=== PATIENT | female | born 1990 | race Caucasian/White ===

== ENCOUNTER 2018-10-09 09:46 | Emergency (ER) | payer BC ==
--- NOTE | 2018-10-09 10:10 | EDM.PDOC ---
ED HPI GENERAL MEDICAL PROBLEM - General Chief Complaint: Laceration Stated Complaint: CUT HAND WITH SCISSORS Time Seen by Provider: 10/09/18 10:07 Source of Information: Reports: Patient History Limitations: Reports: No Limitations - History of Present Illness INITIAL COMMENTS - FREE TEXT/NARRATIVE: HISTORY AND PHYSICAL: History of present illness: Patient is a 28 troponin presents to the ED today with concern of the left palm laceration from a scissor. Patient denies little blood loss and states she has full range of motion, strength, and sensation of the hand without any deficit. Patient states she is up-to-date on her vaccinations. Patient denies fever, chills, chest pain, shortness of breath, or cough. Denies headache, neck stiff ness, change in vision, syncope, or near syncope. Denies nausea, vomiting, abdominal pain, diarrhea, constipation, or dysuria. Has not noted any blood in urine or stool. Patient has been eating and drinking appropriately. Review of systems: As per history of present illness and below otherwise all systems reviewed and negative. Past medical history: As per history of present illness and as reviewed below otherwise noncontributory. Surgical history: As per history of present illness and as reviewed below otherwise noncontributory. Social history: See social history for further information Family history: As per history of present illness and as reviewed below otherwise noncontributory. Physical exam: General: Patient is alert, oriented, and in no acute distress. Patient sitting comfortably on exam table. HEENT: Atraumatic, normocephalic, pupils equal and reactive bilaterally, negative for conjunctival pallor or scleral icterus, mucous membranes moist, TMs normal bilaterally, throat clear, neck supple, nontender, trachea midline. No drooling or trismus noted. No meningeal signs. No hot potato voice noted. Lungs: Clear to auscultation, breath sounds equal bilaterally, chest nontender. Heart: S1S2, regular rate and rhythm without overt murmur Abdomen: Soft, nondistended, nontender. Negative for masses or hepatosplenomegaly. Negative for costovertebral tenderness. Pelvis: Stable nontender. Genitourinary: Deferred. Rectal: Deferred. Skin: Intact, warm, dry. No lesions or rashes noted. Extremities: Negative for cords or calf pain. Neurovascular unremarkable. There is a 3mm superficial abrasion/laceration on the medial left palm of the hand. There is a very small amount of blood loss. Radial pulses grossly intact with capillary refill less than 2 seconds hand. Patient has full range of motion/ strength of all joints of the upper extremities. Neuro: Awake, alert, oriented. Cranial nerves II through XII unremarkable. Cerebellum unremarkable. Motor and sensory unremarkable throughout. Exam nonfocal. Notes: Discussed the importance for follow-up with a primary care provider. Voices understanding and is agreeable to plan of care. Denies any further questions or concerns at this time. Diagnostics: Hand x-ray Therapeutics: Dermabond Prescription: None Impression: Hand laceration Plan: 1. Keep the area clean and dry. Continue to monitor for signs of infection as discussed. 2. Tylenol and/or ibuprofen as directed and as needed for pain management and discomfort. 3. Please follow-up with your primary care provider as discussed. Return to the ED as needed and as discussed. Definitive disposition and diagnosis as appropriate pending reevaluation and review of above. LEFT HAND Pain Score (Numeric/FACES): 7 - Related Data Allergies Allergy/AdvReac Type Severity Reaction Status Date / Time aspirin Allergy Hives Verified 10/09/18 09:55 Home Meds: Home Meds PARoxetine [Paxil] 10 mg PO DAILY 10/09/18 [History] Past Medical History HEENT History: Reports: None Cardiovascular History: Reports: None Respiratory History: Reports: None Gastrointestinal History: Reports: None Genitourinary History: Reports: None KEY MAKER History: Reports: None Musculoskeletal History: Reports: None Neurological History: Reports: None Psychiatric History: Reports: Anxiety, Depression Endocrine/Metabolic History: Reports: None Hematologic History: Reports: None Immunologic History: Reports: None Oncologic (Cancer) History: Reports: None Dermatologic History: Reports: None - Past Surgical History Head Surgeries/Procedures: Reports: None HEENT Surgical History: Reports: None Cardiovascular Surgical History: Reports: None Respiratory Surgical History: Reports: None GI Surgical History: Reports: None Female Surgical History: Reports: None Endocrine Surgical History: Reports: None Neurological Surgical History: Reports: None Musculoskeletal Surgical History: Reports: None Oncologic Surgical History: Reports: None Dermatological Surgical History: Reports: None Social & Family History - Family History Family Medical History: Noncontributory - Tobacco Use Smoking Status *Q: Never Smoker Second Hand Smoke Exposure: No - Caffeine Use Caffeine Use: Reports: Coffee - Recreational Drug Use Recreational Drug Use: No ED ROS GENERAL - Review of Systems Review Of Systems: ROS reveals no pertinent complaints other than HPI. ED EXAM, SKIN/RASH Exam: See Below (See dictation) ED SKIN PROCEDURES - Laceration/Wound Repair Left Medial Hand Lac/Wound length In cm: 0.3 Appearance: Superficial, Linear, Clean Distal NVT: Neuro & Vascular Intact, No Tendon Injury Skin Prep: Chlorhexidine (Hibiciens) Saline Irrigation (cc's): 20 Exploration/Debridement/Repair: Wound Explored, In a Bloodless Field, Explored to Base, No Foreign Material Found Closed with: Dermabond Drain Placement: No Sterile Dressing Applied: Nurse Tetanus Status Addressed: Yes (up to date) Complications: No Course - Vital Signs Last Recorded V/S: Last Vital Signs Temp 36.2 C 10/09/18 09:52 Pulse 86 10/09/18 09:52 Resp 18 10/09/18 09:52 BP 123/85 10/09/18 09:52 Pulse Ox 98 10/09/18 09:52 - Orders/Labs/Meds Orders: Active Orders 24 hr Category Date Time Status Hand Comp Min 3V Lt [CR] Stat Exams 10/09/18 10:08 Taken Meds: Medications Discontinued Medications Generic Name Dose Route Start Last Admin Trade Name Charlene PRN Reason Stop Dose Admin Octyl Cyanoacrylate 1 applic 10/09/18 10:28 Dermabond Mini TOP 10/09/18 10:29 ONETIME ONE Departure - Departure Time of Disposition: 10:26 Disposition: Home, Self-Care 01 Clinical Impression: Hand laceration Qualifiers: Encounter type: initial encounter Foreign body presence: without foreign body Laterality: left Qualified Code(s): S61.412A - Laceration without foreign body of left hand, initial encounter - Discharge Information Instructions: Laceration Care, Adult, [id number] Referrals: PCP,None [Primary Care Provider] - Forms: ED Department Discharge Additional Instructions: The following information is given to patients seen in the emergency department who are being discharged to home. This information is to outline your options for follow-up care. We provide all patients seen in our emergency department with a follow-up referral. The need for follow-up, as well as the timing and circumstances, are variable depending upon the specifics of your emergency department visit. If you don't have a primary care physician on staff, we will provide you with a referral. We always advise you to contact your personal physician following an emergency department visit to inform them of the circumstance of the visit and for follow-up with them and/or the need for any referrals to a consulting specialist. The emergency department will also refer you to a specialist when appropriate. This referral assures that you have the opportunity for follow-up care with a specialist. All of these measure are taken in an effort to provide you with optimal care, which includes your follow-up. Under all circumstances we always encourage you to contact your private physician who remains a resource for coordinating your care. When calling for follow-up care, please make the office aware that this follow-up is from your recent emergency room visit. If for any reason you are refused follow-up, please contact the [facility] Emergency Department at and asked to speak to the emergency department charge nurse. [facility] [address] [place], [place] [id number] [facility] [address] [place] [address] 1. Keep the area clean and dry. Continue to monitor for signs of infection as discussed. 2. Tylenol and/or ibuprofen as directed and as needed for pain management and discomfort. 3. Please follow-up with your primary care provider as discussed. Return to the ED as needed and as discussed. - My Orders Last 24 Hours: My Active Orders 10/09/18 10:08 Hand Comp Min 3V Lt [CR] Stat - Assessment/Plan Last 24 Hours: My Active Orders 10/09/18 10:08 Hand Comp Min 3V Lt [CR] Stat
[2018-10-09] MEDS ORDERED: Octyl 2-Cyanoacrylate 1 APPLIC TUBE TOP ONE (10:28)
--- NOTE | 2018-10-09 10:50 | CR ---
INDICATION: Laceration. TECHNIQUE: Three views of the left hand. COMPARISON: None. IMPRESSION: No fracture, subluxation or dislocation. No foreign body is identified. Dictated by Lisandro Vann MD @ 10/09/2018 10:49:34 AM Dictated by: Lisandro Vann MD @ 10/09/2018 10:49:41 (Electronically Signed)
== END 2018-10-09 10:59 | disposition home or self-care (01) ==
LOC: MW.ED 09:46
DX: S61.412A Laceration without foreign body of left hand, initial encounter (principal); F41.9 Anxiety disorder, unspecified; F32.9 Major depressive disorder, single episode, unspecified; Z79.899 Other long term (current) drug therapy; Z88.6 Allergy status to analgesic agent; W26.8XXA Contact with other sharp object(s), not elsewhere classified, initial encounter
CPT/HCPCS: 12001; 73130; 99283; A9270

== ENCOUNTER 2018-12-26 06:25 | Day surgery (SDC) | payer BC ==
[~2018-12-26 06:25] MED LIST: Lactated Ringers 1,000 ML IV SCH; Sodium Chloride 0.9% 10 ML SDV IV PRN; Sodium Chloride 0.9% 10 ML Syringe FLUSH PRN; Sodium Chloride 0.9% 2.5 ML Syringe FLUSH PRN; ceFAZolin 2 GM in Premix Bag 1 BAG IV ONE
--- NOTE | 2018-12-26 07:08 | PCM.PREANE ---
Preanesthetic Assessment - Anesthesia/Transfusion/Family Hx Anesthesia History: No Prior Anesthesia Family History of Anesthesia Reaction: No Transfusion History: No Prior Transfusion(s) Intubation History: Unknown - Review of Systems General: No Symptoms Pulmonary: No Symptoms Cardiovascular: No Symptoms Gastrointestinal: No Symptoms Neurological: No Symptoms Other: Reports: None - Physical Assessment O2 Sat by Pulse Oximetry: 97 Respiratory Rate: 15 Vital Signs: Last Vital Signs Temp 36.2 C 12/26/18 06:51 Pulse 81 12/26/18 06:51 Resp 15 12/26/18 06:51 BP 98/77 12/26/18 06:51 Pulse Ox 97 12/26/18 06:51 Height: 5 ft 4 in Weight: 80.286 kg ASA Class: 2 Mental Status: Alert & Oriented x3 Airway Class: Mallampati = 1 Dentition: Reports: Normal Dentition Thyro-Mental Finger Breadths: 3 Mouth Opening Finger Breadths: 3 ROM/Head Extension: Full Lungs: Clear to Auscultation, Normal Respiratory Effort Cardiovascular: Regular Rate, Regular Rhythm - Allergies Allergies/Adverse Reactions: Allergies Allergy/AdvReac Type Severity Reaction Status Date / Time aspirin Allergy Hives Verified 12/21/18 15:01 - Blood Blood Available: No - Anesthesia Plan Pre-Op Medication Ordered: None - Acknowledgements Anesthesia Type Planned: MAC Pt an Appropriate Candidate for the Planned Anesthesia: Yes Alternatives and Risks of Anesthesia Discussed w Pt/Guardian: Yes Pt/Guardian Understands and Agrees with Anesthesia Plan: Yes PreAnesthesia Questionnaire HEENT History: Reports: Other (See Below) Other HEENT History: wears glasses/contacts Cardiovascular History: Reports: None Respiratory History: Reports: Asthma Other Respiratory History: has outgrown it- does not use inhaler Gastrointestinal History: Reports: None Genitourinary History: Reports: UTI, Recurrent Other Genitourinary History: 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: Musculoskeletal History: Reports: None Neurological History: Reports: None Psychiatric History: Reports: Anxiety Other Psychiatric History: not currently taking medication Endocrine/Metabolic History: Reports: Obesity/BMI 30+ Hematologic History: Reports: None Immunologic History: Reports: None Oncologic (Cancer) History: Reports: None Dermatologic History: Reports: Other (See Below) Other Dermatologic History: has a "pigment disorder" - Past Surgical History Head Surgeries/Procedures: Reports: None HEENT Surgical History: Reports: None Cardiovascular Surgical History: Reports: None Respiratory Surgical History: Reports: None GI Surgical History: Reports: None Female Surgical History: Reports: None Endocrine Surgical History: Reports: None Neurological Surgical History: Reports: None Musculoskeletal Surgical History: Reports: None Oncologic Surgical History: Reports: None Dermatological Surgical History: Reports: None - SUBSTANCE USE Smoking Status *Q: Current Every Day Smoker (1/2 ppd plus vapor) Recreational Drug Use History: No - HOME MEDS Home Medications: Home Meds Melatonin/Pyridoxine HCl (B6) [Melatonin 3 mg Tablet] 3 mg PO BEDTIME PRN [History] - CURRENT (IN HOUSE) MEDS Current Meds: Current Medications Lactated Ringer's (Ringers, Lactated) 1,000 mls @ 125 mls/hr IV ASDIRECTED TASHA Last Admin: 12/26/18 06:56 Dose: 125 mls/hr Sodium Chloride (Saline Flush) 10 ml FLUSH ASDIRECTED PRN PRN Reason: Keep Vein Open Sodium Chloride (Saline Flush) 2.5 ml FLUSH ASDIRECTED PRN PRN Reason: Keep Vein Open Sodium Chloride (Normal Saline) 10 ml IV ASDIRECTED PRN PRN Reason: IV Use Discontinued Medications Cefazolin Sodium/Dextrose 2 gm (/ Premix) 50 mls @ 100 mls/hr IV ONETIME ONE Stop: 12/23/18 15:21
[2018-12-26] MEDS ORDERED: Lidocaine 1% with EPINEPHrine 1:100,000 10 ML MDV ONE (07:25)
[2018-12-26] MEDS ORDERED: Propofol 200 MG/20 ML SDV ONE (07:32)
[2018-12-26] MEDS ORDERED: Lidocaine 2% 5 ML SDV ONE (07:32)
[2018-12-26] MEDS ORDERED: Ketorolac 30 MG/ML SDV ONE (07:33)
[2018-12-26] MEDS ORDERED: Midazolam 1 MG/ML 2 ML SDV ONE (07:33)
[2018-12-26] MEDS ORDERED: fentaNYL 100 MCG/2 ML SDV ONE (07:33)
[2018-12-26] MEDS ORDERED: Ondansetron 4 MG/2 ML SDV ONE (07:33)
[2018-12-26] MEDS ORDERED: ceFAZolin/Dextrose,Iso-Osmotic 2 GM/50 ML Duplex Bag IV ONE (08:11)
--- NOTE | 2018-12-26 08:43 | PCM.OPNOTE ---
- General Post-Op/Procedure Note Date of Surgery/Procedure: 12/26/18 Operative Procedure(s): Excision foreign body left upper extremity. Findings: Implanon deep in the subcutaneous fat of the left upper extremity. Pre Op Diagnosis: Foreign body LUE Post-Op Diagnosis: same Anesthesia Technique: MAC Primary Surgeon: Alexandria Kirby Condition: Good
--- NOTE | 2018-12-26 14:33 | OR ---
SURGEON: NATHALIA HARO MD DATE OF PROCEDURE: 12/26/2018 PREOPERATIVE DIAGNOSIS: Foreign body, left upper extremity. POSTOPERATIVE DIAGNOSIS: Foreign body, left upper extremity. PROCEDURE PERFORMED: Excision of left upper extremity foreign body. ANESTHESIA: MAC, ESTIMATED BLOOD LOSS: 5 mL. FLUIDS: 850 mL crystalloid. FINDINGS: Implanon device deep within the subcutaneous fat of the left upper extremity. COMPLICATIONS: None. INDICATIONS: The patient is a 28-year-old female, who has an Implanon device in place. It was placed too deep for percutaneous removal in the office. The patient had a preoperative ultrasound that showed the foreign body still in place in her left upper extremity. I explained the need for surgical excision in the operating room. I explained the procedure, expected perioperative course, and risks including bleeding, infection, or damage to surrounding structures. She verbalized understanding and wishes to proceed. PROCEDURE IN DETAIL: The patient was brought into the OR and placed on the OR table in supine position with the left arm extended. A time-out was completed verifying the patient's name, age, date of , allergies, and procedure to be performed. Monitored anesthesia care was induced. The left arm was prepped and draped in the usual standard fashion. I used an ultrasound to identify the area where the Implanon was. I then anesthetized over the area using 1% lidocaine with epinephrine. A 15 blade was used to make a 3 cm incision longitudinally over this area. Cautery was used to dissect down through the layers of the subcutaneous fat. I dissected down approximately 2 cm when I felt a firm structure consistent with that of the Implanon device. This was grasped with an Allis clamp and dissected free of the surrounding tissues using electrocautery. It was removed from the field and appeared to be intact. No further structures were palpated within the wound cavity. Cautery was used to achieve hemostasis. The wound was closed with interrupted layers of 3-0 Vicryl suture in the subcutaneous fat layer. The skin was closed with a running 4-0 Monocryl stitch. Steri-Strips and sterile dressings were applied. All counts were complete and correct at the end of the case. The patient was awoken and taken to the PACU in stable condition. LINA / TRENT /[id number]
== END 2018-12-26 10:09 | disposition home or self-care (01) ==
LOC: MW.SDS 06:25
PROVIDERS: ATTEND Surgery
DX: Z30.46 Encounter for surveillance of implantable subdermal contraceptive (principal); Z88.6 Allergy status to analgesic agent
CPT/HCPCS: 11982; 81025; J0690; J1885; J2001; J2250; J2405; J2704; J3010; J7120; 00400

== ENCOUNTER 2019-04-09 17:04 | Emergency (ER) | payer BC ==
--- NOTE | 2019-04-09 17:11 | EDM.PDOC ---
ED HPI GENERAL MEDICAL PROBLEM - General Chief Complaint: ENT Problem Stated Complaint: EAR INFECTION Time Seen by Provider: 04/09/19 17:05 Source of Information: Reports: Patient History Limitations: Reports: No Limitations - History of Present Illness INITIAL COMMENTS - FREE TEXT/NARRATIVE: History of present illness: []Patient has had a sore throat for 6 days and developed ear pain 3 days ago. Past history of frequent ear infections when she was a child and has had tubes. Patient is declining any pain meds denies any fevers or chills, sore throat is resolved he has no other complaints. Review of systems: As per history of present illness and below otherwise all systems reviewed and negative. Past medical history: As per history of present illness and as reviewed below otherwise noncontributory. Surgical history: As per history of present illness and as reviewed below otherwise noncontributory. Social history: No reported history of drug or alcohol abuse. Family history: As per history of present illness and as reviewed below otherwise noncontributory. Physical exam: General: Well developed, well nourished in NAD HEENT: Atraumatic, normocephalic, pupils reactive, negative for conjunctival pallor or scleral icterus, mucous membranes moist, throat clear, neck supple, nontender, trachea midline. Right TM is fully scarred him a left TM severe scarring with erythema. Lungs: Clear to auscultation, breath sounds equal bilaterally, chest nontender. Heart: S1S2, regular, negative for clicks, rubs, or JVD. Abdomen: NABS, Soft, nondistended, nontender. Negative for masses or hepatosplenomegaly. Negative for costovertebral tenderness. Pelvis: Stable nontender. Genitourinary: Deferred. Rectal: Deferred. Extremities: Atraumatic, negative for cords or calf pain. Neurovascular unremarkable. Neuro: Awake, alert, oriented. Cranial nerves II through XII unremarkable. Cerebellum unremarkable. Motor and sensory unremarkable throughout. Exam nonfocal. Skin:warm and dry Diagnostics: None Therapeutics: Augmentin, declined pain meds ED Course: sTable Impression: Left otitis media Prescriptions: Augmentin Plan: Take meds as directed, follow up with your primary care physician, return to ER if symptoms worsen or change. Definitive disposition and diagnosis as appropriate pending reevaluation and review of above. right ear Pain Score (Numeric/FACES): 7 - Related Data Allergies Allergy/AdvReac Type Severity Reaction Status Date / Time aspirin Allergy Hives Verified 04/09/19 17:18 Home Meds: Home Meds Melatonin/Pyridoxine HCl (B6) [Melatonin 3 mg Tablet] 3 mg PO BEDTIME PRN [History] Amoxicillin/Clavulanate K [Augmentin 875-125 MG] 1 tab PO BID #20 tablet [Rx] Past Medical History HEENT History: Reports: None Other HEENT History: wears glasses/contacts Cardiovascular History: Reports: None Respiratory History: Reports: None Other Respiratory History: has outgrown it- does not use inhaler Gastrointestinal History: Reports: None Genitourinary History: Reports: None 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 Musculoskeletal History: Reports: None Neurological History: Reports: None Psychiatric History: Reports: Anxiety, Depression Other Psychiatric History: not currently taking medication Endocrine/Metabolic History: Reports: Obesity/BMI 30+ Hematologic History: Reports: None Immunologic History: Reports: None Oncologic (Cancer) History: Reports: None Dermatologic History: Reports: None Other Dermatologic History: has a "pigment disorder" - Past Surgical History Head Surgeries/Procedures: Reports: None HEENT Surgical History: Reports: None Cardiovascular Surgical History: Reports: None Respiratory Surgical History: Reports: None GI Surgical History: Reports: None Female Surgical History: Reports: None Endocrine Surgical History: Reports: None Neurological Surgical History: Reports: None Musculoskeletal Surgical History: Reports: None Oncologic Surgical History: Reports: None Dermatological Surgical History: Reports: None Social & Family History - Family History Family Medical History: Noncontributory - Caffeine Use Caffeine Use: Reports: Coffee ED ROS ENT - Review of Systems Review Of Systems: See Below ED EXAM, ENT - Physical Exam Exam: See Below Course - Vital Signs Last Recorded V/S: Last Vital Signs Temp 97.3 F 04/09/19 17:17 Pulse 87 04/09/19 17:17 Resp 18 04/09/19 17:17 BP 100/60 04/09/19 17:17 Pulse Ox 96 04/09/19 17:17 - Orders/Labs/Meds Meds: Medications Discontinued Medications Generic Name Dose Route Start Last Admin Trade Name Freq PRN Reason Stop Dose Admin Amoxicillin/Clavulanate Potassium 1 tab 04/09/19 17:27 Augmentin 875 Mg/125 Mg PO 04/09/19 17:28 ONETIME ONE Departure - Departure Time of Disposition: 17:29 Disposition: Home, Self-Care 01 Condition: Good Clinical Impression: Left otitis media Qualifiers: Otitis media type: suppurative Chronicity: acute Recurrence: not specified as recurrent Spontaneous tympanic membrane rupture: without spontaneous rupture Qualified Code(s): H66.002 - Acute suppurative otitis media without spontaneous rupture of ear drum, left ear - Discharge Information *PRESCRIPTION DRUG MONITORING PROGRAM REVIEWED*: Not Applicable *COPY OF PRESCRIPTION DRUG MONITORING REPORT IN PATIENT ANIYA: Not Applicable Prescriptions: Amoxicillin/Clavulanate K [Augmentin 875-125 MG] 1 tab PO BID #20 tablet Referrals: PCP,None [Primary Care Provider] - Forms: ED Department Discharge Additional Instructions: The following information is given to patients seen in the emergency department who are being discharged to home. This information is to outline your options for follow-up care. We provide all patients seen in our emergency department with a follow-up referral. The need for follow-up, as well as the timing and circumstances, are variable depending upon the specifics of your emergency department visit. If you don't have a primary care physician on staff, we will provide you with a referral. We always advise you to contact your personal physician following an emergency department visit to inform them of the circumstance of the visit and for follow-up with them and/or the need for any referrals to a consulting specialist. The emergency department will also refer you to a specialist when appropriate. This referral assures that you have the opportunity for follow-up care with a specialist. All of these measure are taken in an effort to provide you with optimal care, which includes your follow-up. Under all circumstances we always encourage you to contact your private physician who remains a resource for coordinating your care. When calling for follow-up care, please make the office aware that this follow-up is from your recent emergency room visit. If for any reason you are refused follow-up, please contact the [facility] Emergency Department at and asked to speak to the emergency department charge nurse. Take meds as directed, follow up with your primary care physician, return to ER if symptoms worsen or change. [facility] [address] [place] [id number]
[2019-04-09] MEDS ORDERED: Amoxicillin/Clavulanate K 875-125 MG Tab PO ONE (17:27)
== END 2019-04-09 17:40 | disposition home or self-care (01) ==
LOC: MW.ED 17:04
DX: H66.002 Acute suppurative otitis media without spontaneous rupture of ear drum, left ear (principal); E66.9 Obesity, unspecified; Z88.6 Allergy status to analgesic agent
CPT/HCPCS: 99282; A9270

== ENCOUNTER 2019-08-03 09:13 | Emergency (ER) | payer BC, OTHER ==
[2019-08-03] MEDS ORDERED: HYDROmorphone 1 MG/ML Syringe IVPUSH ONE ×2 (09:19→10:16)
[2019-08-03] MEDS ORDERED: ceFAZolin 2 GM in Premix Bag 1 BAG IV ONE (09:20)
[2019-08-03] MEDS ORDERED: GENTAMICIN IV STA ×4 (09:23→09:55)
[2019-08-03] MEDS ORDERED: DEXTROSE 5% IV STA ×4 (09:23→09:55)
[2019-08-03] MEDS ORDERED: WATER IV STA ×4 (09:23→09:55)
[2019-08-03] MEDS ORDERED: Diphtheria,Pertussis(Acell),Tetanus Vaccine 0.5 ML Syringe IM ONE (09:24)
--- NOTE | 2019-08-03 09:59 | CR ---
Right hand: 3 views the right hand were obtained. Comparison: No previous study. Displaced and angulated fracture is identified within the mid shaft of the proximal phalanx of the second finger. There is a linear opaque foreign object being seen within the proximal second finger within the soft tissues presumably due to foreign body. Soft tissue swelling is noted within the second finger. No additional bony abnormality is seen. Impression: 1. Angulated and displaced fracture within the proximal phalanx of the right second finger. 2. Possible linear foreign body within the base of the second finger. 3. Soft tissue swelling. Diagnostic code #3 This report was dictated in [place] Standard Time
--- NOTE | 2019-08-03 10:04 | EDM.PDOC ---
ED HPI GENERAL MEDICAL PROBLEM - General Chief Complaint: Upper Extremity Injury/Pain Stated Complaint: SMASHED FINGER Time Seen by Provider: 08/03/19 10:04 - History of Present Illness INITIAL COMMENTS - FREE TEXT/NARRATIVE: HPI 28-year-old female presents ~20 minutes after sustaining a crush injury at the base of her right index finger. Patient reports she was crushed by forklift [place] a [place]. Td is believed to be up-to-date. No known pertinent past medical history. Denies ability to feel at the tip of her right index finger. No further injuries. ROS with no recent constitutional symptoms. Exam HR 97, RR 16, BP 138/114, T 36.8C, SaO2 97% on room air. Gen: Pleasant, non-toxic appearing, resting comfortably HEENT: NC, AT, PEERL, EOMI. Resp: Clear to auscultation bilaterally. Unlabored respirations with a normal work of breathing. Card: Regular rate and rhythm. Extremities warm and well perfused. GI: Non-distended. : Deferred MSK: the base of the right index finger there is a gross deformity with a transverse (medial aspect is proximal, lateral aspect is distal injury on the palmar and dorsal aspect of the finger), finger is dusky, patient reports no sensation at fingertip, poor capillary refill. Neuro: alert and oriented 3, no facial asymmetry, vision and hearing WNL. Heme/Lymph: Deferred Skin: Normal color with no visible lesions (other than noted above). Psych: Mood and affect appropriate. Imaging: XR R Hand: 1. Angulated and displaced fracture within the proximal phalanx of the right second finger. 2. Possible linear foreign body within the base of the second finger. 3. Soft tissue swelling. MDM Previous chart, nursing note, and vitals reviewed. A: 28-year-old female presents ~20 minutes after sustaining a crush injury at the base of her right index finger. DDx & Evaluation: patient grossly with crush injury, neurovascular compromise, Td believed to be up-to-date but not verified the present time. Tetanus booster given, as is concerned that this is a grade III fracture patient was given gentamycin (300 mg) in addition to 2 g Ancef. 1 mg hydromorphone for pain control. Wet dressing applied. 09:27 Dr. Sinha, and surgeon on-call in [place] accepted the patient in transfer. Discuss time sensitivity of transfer, patient would be appropriate for transfer by ground. 09:46 - unable to obtain timely ground transfer, due to concerns about delays in operative intervention HEMS requested. Impression: right hand crush injury. Right index Pain Score (Numeric/FACES): 8 - Related Data Allergies Allergy/AdvReac Type Severity Reaction Status Date / Time aspirin Allergy Hives Verified 08/03/19 09:22 Home Meds: Home Meds . 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 History: Reports: None Musculoskeletal History: Reports: None Neurological History: Reports: None Psychiatric History: Reports: Anxiety, Depression Other Psychiatric History: not currently taking medication Endocrine/Metabolic History: Reports: Obesity/BMI 30+ Hematologic History: Reports: None Immunologic History: Reports: None Oncologic (Cancer) History: Reports: None Dermatologic History: Reports: None Other Dermatologic History: has a "pigment disorder" - Infectious Disease History Infectious Disease History: Reports: None - Past Surgical History Head Surgeries/Procedures: Reports: None HEENT Surgical History: Reports: None Cardiovascular Surgical History: Reports: None Respiratory Surgical History: Reports: None GI Surgical History: Reports: None Female Surgical History: Reports: None Endocrine Surgical History: Reports: None Neurological Surgical History: Reports: None Musculoskeletal Surgical History: Reports: None Oncologic Surgical History: Reports: None Dermatological Surgical History: Reports: None Social & Family History - Family History Family Medical History: Noncontributory - Tobacco Use Smoking Status *Q: Unknown Ever Smoked - Caffeine Use Caffeine Use: Reports: Coffee - Recreational Drug Use Recreational Drug Use: No Review of Systems - Review of Systems Review Of Systems: See Below ED EXAM, GENERAL - Physical Exam Exam: See Below Course - Vital Signs Last Recorded V/S: Last Vital Signs Temp 36.8 C 08/03/19 09:22 Pulse 78 08/03/19 09:46 Resp 16 08/03/19 09:46 BP 114/77 08/03/19 09:46 Pulse Ox 98 08/03/19 09:46 - Orders/Labs/Meds Orders: Active Orders 24 hr Category Date Time Status Vaccines to be Administered [RC] PER UNIT ROUTINE Care 08/03/19 09:24 Active Gentamicin 300 mg Med 08/03/19 09:55 Active Dextrose 5% in Water 50 ml IV NOW Medication Orders Gentamicin Sulfate 300 mg/ (Dextrose/Water) 57.5 mls @ 115 mls/hr IV NOW STA Stop: 08/03/19 10:24 Meds: Medications Generic Name Dose Route Start Last Admin Trade Name Frelin PRN Reason Stop Dose Admin Gentamicin Sulfate 300 mg/ 57.5 mls @ 115 mls/hr 08/03/19 09:55 Dextrose/Water IV 08/03/19 10:24 NOW STA Discontinued Medications Generic Name Dose Route Start Last Admin Trade Name Frelin PRN Reason Stop Dose Admin Diphtheria/Tetanus/Acell Pertussis 0.5 ml 08/03/19 09:24 08/03/19 09:34 Adacel IM 08/03/19 09:25 0.5 ml .ONCE ONE Administration Hydromorphone HCl 1 mg 08/03/19 09:19 08/03/19 09:34 Dilaudid IVPUSH 08/03/19 09:20 1 mg ONETIME ONE Administration Cefazolin Sodium/Dextrose 2 gm 50 mls @ 100 mls/hr 08/03/19 09:20 08/03/19 09 :34 / Premix IV 08/03/19 09:49 100 mls/hr ONETIME ONE Administration Departure - Departure Time of Disposition: 10:03 Disposition: DC/Tfer to Other 70 Clinical Impression: Open fracture - Discharge Information Sepsis Event Note - Evaluation Sepsis Screening Result: No Definite Risk - Focused Exam Vital Signs: Vital Signs Temp Pulse Resp BP Pulse Ox 08/03/19 09:46 78 16 114/77 98 08/03/19 09:31 70 16 113/74 99 08/03/19 09:22 36.8 C 97 16 138/114 H 97 Date Exam was Performed: 08/03/19 Time Exam was Performed: 10:03 - My Orders Last 24 Hours: My Active Orders 08/03/19 09:24 Vaccines to be Administered [RC] PER UNIT ROUTINE 08/03/19 09:55 Gentamicin 300 mg Dextrose 5% in Water 50 ml IV NOW - Assessment/Plan Last 24 Hours: My Active Orders 08/03/19 09:24 Vaccines to be Administered [RC] PER UNIT ROUTINE 08/03/19 09:55 Gentamicin 300 mg Dextrose 5% in Water 50 ml IV NOW
[2019-08-03] MEDS ORDERED: HYDROmorphone 1 MG/ML Syringe ONE (10:16)
== END 2019-08-03 10:49 | disposition other institution (70) ==
LOC: MW.ED 09:13
DX: S67.190A Crushing injury of right index finger, initial encounter (principal); Z23 Encounter for immunization; W31.89XA Contact with other specified machinery, initial encounter
CPT/HCPCS: 73130; 90471; 90715; 96365; 96367; 96375; 96376; 99285; J0690; J1170; J1580; J7060

== ENCOUNTER 2019-12-25 16:47 | Emergency (ER) | payer OTHER ==
--- NOTE | 2019-12-25 17:18 | EDM.PDOC ---
ED HPI GENERAL MEDICAL PROBLEM - General Chief Complaint: Upper Extremity Injury/Pain Stated Complaint: RIGHT HAND INJURY Time Seen by Provider: 12/25/19 16:48 Source of Information: Reports: Patient History Limitations: Reports: No Limitations - History of Present Illness INITIAL COMMENTS - FREE TEXT/NARRATIVE: HISTORY AND PHYSICAL: History of present illness: Patient is a 29-year-old female who presents to the emergency room requesting a new cast post surgery. She had surgery on her right index finger on Wednesday and had been in a half cast fiberglass splint. She states she went tubing yesterday and the cast had gotten wet, therefore she took it off. She reports that Dr. Sykes requested she have the cast replaced. She does have a follow-up appointment on 12/28/2019. Other than requesting the cast to be replaced she has no other complaints or concerns. Patient denies any fever, chills, headache, change in vision, syncope or near syncope. Denies any chest pain, back pain, shortness of breath or cough. Denies any abdominal pain, nausea, vomiting, diarrhea, constipation or dysuria. Has not noted any blood in urine or stool. Patient has been eating and drinking appropriately. Review of systems: As per history of present illness and below otherwise all systems reviewed and negative. Past medical history: As per history of present illness and as reviewed below otherwise noncontributory. Surgical history: As per history of present illness and as reviewed below otherwise noncontributory. Social history: See social history for further information Family history: As per history of present illness and as reviewed below otherwise noncontributory. Physical exam: General: Well-developed and well-nourished 29-year-old female. Alert and oriented. Nontoxic-appearing and in no acute distress. HEENT: Atraumatic, normocephalic, pupils equal and reactive bilaterally, negative for conjunctival pallor or scleral icterus, mucous membranes moist, trachea midline. No drooling or trismus noted. No meningeal signs. No hot potato voice noted. Lungs: Clear to auscultation, breath sounds equal bilaterally, chest nontender. Heart: S1S2, regular rate and rhythm without overt murmur Abdomen: Soft, nondistended, nontender. Skin: Incision/did sutures over the MIP joint of the right index finger. Skin is intact without any erythema or drainage. Otherwise remaining skin is intact, warm, dry. No lesions or rashes noted. Extremities: Moves all extremities per self without difficulty or deficits, negative for cords or calf pain. Neurovascular unremarkable. Neuro: Awake, alert, oriented. Cranial nerves II through XII unremarkable. Cerebellum unremarkable. Motor and sensory unremarkable throughout. Exam nonfocal. Notes: Fiberglas splint was re-applied with education. 1/2 cast Fiberglas splint of right hand, due to history of fractured finger, needs to wear this until she is seen by Dr. Sykes Follow-up and supportive care measures were reviewed and discussed. Voices understanding and is agreeable to plan of care. Denies any further questions or concerns at this time. Diagnostics: None Therapeutics: Fiberglas splint Prescription: None Impression: Need for cast replacement Plan: 1. Keep the skin clean and dry. Continue to wear the splint as directed until you follow-up with Dr Sykes 12/28/2019. 2. Alternate Tylenol and ibuprofen as needed for pain. 3. If your symptoms should worsen, new symptoms develop or any of the signs and symptoms we discussed should arise please return to the emergency room or call 911 (if needed). Definitive disposition and diagnosis as appropriate pending reevaluation and review of above. - Related Data Allergies Allergy/AdvReac Type Severity Reaction Status Date / Time aspirin Allergy Hives Verified 12/25/19 17:07 Home Meds: Home Meds . 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: Reports: None Musculoskeletal History: Reports: None Neurological History: Reports: None Psychiatric History: Reports: Anxiety, Depression Other Psychiatric History: not currently taking medication Endocrine/Metabolic History: Reports: Obesity/BMI 30+ Hematologic History: Reports: None Immunologic History: Reports: None Oncologic (Cancer) History: Reports: None Dermatologic History: Reports: None Other Dermatologic History: has a "pigment disorder" - Infectious Disease History Infectious Disease History: Reports: None - Past Surgical History Head Surgeries/Procedures: Reports: None HEENT Surgical History: Reports: None Cardiovascular Surgical History: Reports: None Respiratory Surgical History: Reports: None GI Surgical History: Reports: None Female Surgical History: Reports: None Endocrine Surgical History: Reports: None Neurological Surgical History: Reports: None Musculoskeletal Surgical History: Reports: None Oncologic Surgical History: Reports: None Dermatological Surgical History: Reports: None Social & Family History - Family History Family Medical History: Noncontributory - Tobacco Use Smoking Status *Q: Unknown Ever Smoked - Caffeine Use Caffeine Use: Reports: Coffee Review of Systems - Review of Systems Review Of Systems: Comprehensive ROS is negative, except as noted in HPI. ED EXAM, GENERAL - Physical Exam Exam: See Below (SEe dictation) Course - Vital Signs Last Recorded V/S: Last Vital Signs Temp 96.3 F L 12/25/19 17:04 Pulse 96 12/25/19 17:04 Resp 16 12/25/19 17:04 BP 112/47 L 12/25/19 17:04 Pulse Ox 96 12/25/19 17:04 - Orders/Labs/Meds Orders: Active Orders 24 hr Category Date Time Status DME for Discharge [COMM] Stat Oth 12/25/19 17:15 Ordered Departure - Departure Time of Disposition: 17:17 Disposition: Home, Self-Care 01 Clinical Impression: Encounter for replacement of cast - Discharge Information Referrals: Bita Streeter MD [Primary Care Provider] - Forms: ED Department Discharge Additional Instructions: The following information is given to patients seen in the emergency department who are being discharged to home. This information is to outline your options for follow-up care. We provide all patients seen in our emergency department with a follow-up referral. The need for follow-up, as well as the timing and circumstances, are variable depending upon the specifics of your emergency department visit. If you don't have a primary care physician on staff, we will provide you with a referral. We always advise you to contact your personal physician following an emergency department visit to inform them of the circumstance of the visit and for follow-up with them and/or the need for any referrals to a consulting specialist. The emergency department will also refer you to a specialist when appropriate. This referral assures that you have the opportunity for follow-up care with a specialist. All of these measure are taken in an effort to provide you with optimal care, which includes your follow-up. Under all circumstances we always encourage you to contact your private physician who remains a resource for coordinating your care. When calling for follow-up care, please make the office aware that this follow-up is from your recent emergency room visit. If for any reason you are refused follow-up, please contact the [facility] Emergency Department at and asked to speak to the emergency department charge nurse. [facility] [address] [place] [id number] [id number] Thank you for choosing the [facility] emergency department in [place] for your medical needs today. It was a pleasure caring for you. You were seen in the emergency department for cast replacement. 1. Keep the skin clean and dry. Continue to wear the splint as directed until you follow-up with Dr Sykes 12/28/2019. 2. Alternate Tylenol and ibuprofen as needed for pain. 3. If your symptoms should worsen, new symptoms develop or any of the signs and symptoms we discussed should arise please return to the emergency room or call 911 (if needed). Sepsis Event Note (ED) - Evaluation Sepsis Screening Result: No Definite Risk - Focused Exam Vital Signs: Vital Signs Temp Pulse Resp BP Pulse Ox 12/25/19 17:04 96.3 F L 96 16 112/47 L 96 - My Orders Last 24 Hours: My Active Orders 12/25/19 17:15 DME for Discharge [COMM] Stat - Assessment/Plan Last 24 Hours: My Active Orders 12/25/19 17:15 DME for Discharge [COMM] Stat
== END 2019-12-25 17:45 | disposition left against medical advice (07) ==
LOC: MW.ED 16:47
DX: Z47.89 Encounter for other orthopedic aftercare (principal); E66.9 Obesity, unspecified; Z88.6 Allergy status to analgesic agent; Z68.31 Body mass index [BMI] 31.0-31.9, adult
CPT/HCPCS: 29125; 99282

== ENCOUNTER 2020-05-10 07:23 | Inpatient (IN) | payer OTHER ==
[2020-05-10] MEDS ORDERED: Tranexamic Acid 1,000 MG in Sodium Chloride 0.9% 100 ML IV PRN (16:11)
[2020-05-10] MEDS ORDERED: Sodium Chloride 0.9% 10 ML SDV IV PRN (16:11)
[2020-05-10] MEDS ORDERED: Sodium Chloride 0.9% 10 ML Syringe FLUSH PRN (16:11)
[2020-05-10] MEDS ORDERED: Terbutaline 1 MG/ML SDV SUBCUT PRN (16:11)
[2020-05-10] MEDS ORDERED: Misoprostol 200 MCG Tab PO PRN (16:11)
[2020-05-10] MEDS ORDERED: Ondansetron 4 MG/2 ML SDV IVPUSH PRN (16:11)
[2020-05-10] MEDS ORDERED: Water For Irrigation,Sterile 1,000 ML Container IRR PRN (16:11)
[2020-05-10] MEDS ORDERED: Methylergonovine 0.2 MG/1 ML Amp IM PRN (16:11)
[2020-05-10] MEDS ORDERED: Butorphanol 1 MG/ML SDV IVPUSH PRN (16:11)
[2020-05-10] MEDS ORDERED: Lidocaine 1% 50 ML MDV INJECT PRN (16:11)
[2020-05-10] MEDS ORDERED: Sodium Chloride 0.9% 2.5 ML Syringe FLUSH PRN (16:11)
[2020-05-10] MEDS ORDERED: Misoprostol 25 MCG (1/4 of 100 MCG) Tab VAG PRN ×2 (16:11)
[2020-05-10] MEDS ORDERED: Carboprost Tromethamine 250 MCG/1 ML Amp IM PRN (16:11)
[2020-05-10] MEDS ORDERED: Oxytocin/0.9 % Sodium Chloride 30 UNIT/500 ML BAG IV SCH ×2 (16:15)
[2020-05-10] MEDS: Lactated Ringers 1,000 ML IV SCH ×3 (16:51→23:56)
[2020-05-10] MEDS ORDERED: Ropivacaine 0.2% PF 2 MG/ML 20 ML SDV ONE (23:05)
[2020-05-10] MEDS ORDERED: fentaNYL 100 MCG/2 ML SDV ONE (23:05)
[2020-05-10] MEDS ORDERED: Ropivacaine HCl/PF 100 ML ONE (23:06)
--- NOTE | 2020-05-10 23:51 | PCM.PREANE ---
Preanesthetic Assessment - Procedure Proposed Procedure: PADMINI - Anesthesia/Transfusion/Family Hx Anesthesia History: Prior Anesthesia Without Reaction Other Type of Anesthesia Reaction Comment: PADMINI Family History of Anesthesia Reaction: No Transfusion History: No Prior Transfusion(s) Intubation History: Unknown - Review of Systems General: No Symptoms Pulmonary: No Symptoms Cardiovascular: No Symptoms Gastrointestinal: No Symptoms Neurological: No Symptoms Other: Reports: Anxiety - Physical Assessment NPO Status Date: 05/10/20 NPO Status Time: 22:00 Height: 1.6 m Weight: 96.615 kg ASA Class: 2 Mental Status: Alert & Oriented x3 Airway Class: Mallampati = 2 Dentition: Reports: Normal Dentition Thyro-Mental Finger Breadths: 3 Mouth Opening Finger Breadths: 3 ROM/Head Extension: Full Lungs: Clear to Auscultation Cardiovascular: Regular Rate - Lab Values: Laboratory Last Values WBC 6.02 K/uL (4.0-11.0) 05/10/20 16:35 RBC 3.90 M/uL (4.30-5.90) L 05/10/20 16:35 Hgb 12.2 g/dL (12.0-16.0) 05/10/20 16:35 Hct 36.8 % (36.0-46.0) 05/10/20 16:35 MCV 94.4 fL (80.0-98.0) 05/10/20 16:35 MCH 31.3 pg (27.0-32.0) 05/10/20 16:35 MCHC 33.2 g/dL (31.0-37.0) 05/10/20 16:35 RDW Std Deviation 44.5 fl (28.0-62.0) 05/10/20 16:35 RDW Coeff of Chen 13 % (11.0-15.0) 05/10/20 16:35 Plt Count 244 K/uL (150-400) 05/10/20 16:35 MPV 10.30 fL (7.40-12.00) 05/10/20 16:35 Nucleated RBC % 0.0 /100WBC 05/10/20 16:35 Nucleated RBCs # 0 K/uL 05/10/20 16:35 POC Glucose 76 mg/dL (60-110) 05/10/20 16:26 Blood Type O POSITIVE 12/11/20 16:39 Antibody Screen NEGATIVE 05/10/20 16:39 - Allergies Allergies/Adverse Reactions: Allergies Allergy/AdvReac Type Severity Reaction Status Date / Time aspirin Allergy Hives Verified 05/02/20 10:50 - Blood Blood Available: No Product(s) Available: None - Anesthesia Plan Pre-Op Medication Ordered: None - Acknowledgements Anesthesia Type Planned: Epidural Pt an Appropriate Candidate for the Planned Anesthesia: Yes Alternatives and Risks of Anesthesia Discussed w Pt/Guardian: Yes Pt/Guardian Understands and Agrees with Anesthesia Plan: Yes Additional Comments: Discussed. ? answered. Bolus in-progress. Permit signed, wishes to proceed. . 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: Reports: Musculoskeletal History: Reports: None Neurological History: Reports: None Psychiatric History: Reports: Anxiety, Depression Other Psychiatric History: not currently taking medication Endocrine/Metabolic History: Reports: Diabetes, Type I, Obesity/BMI 30+ Hematologic History: Reports: None Immunologic History: Reports: None Oncologic (Cancer) History: Reports: None Dermatologic History: Reports: None Other Dermatologic History: has a "pigment disorder" - Infectious Disease History Infectious Disease History: Reports: None - Past Surgical History Head Surgeries/Procedures: Reports: None HEENT Surgical History: Reports: None Cardiovascular Surgical History: Reports: None Respiratory Surgical History: Reports: None GI Surgical History: Reports: None Female Surgical History: Reports: None Endocrine Surgical History: Reports: None Neurological Surgical History: Reports: None Musculoskeletal Surgical History: Reports: Amputation Other Musculoskeletal Surgeries/Procedures:: right index finger Oncologic Surgical History: Reports: None Dermatological Surgical History: Reports: None - SUBSTANCE USE Tobacco Use Status *Q: Former Tobacco User Tobacco Use Within Last Twelve Months: No Second Hand Smoke Exposure: No Recreational Drug Use History: No - HOME MEDS Home Medications: Home Meds Ascorbic Acid [Vitamin C] 1 tab PO DAILY 05/02/20 [History] Cholecalciferol (Vitamin D3) [Vitamin D] 1 tab PO DAILY 05/02/20 [History] Insulin Glarg,Human.Rec.Analog [Lantus] 10 unit SQ BID 05/02/20 [History] Insulin Lispro [Humalog] 1 unit SQ ASDIRECTED 05/02/20 [History] Insulin Lispro [Humalog] 16 unit SQ ACBREAKFAST 05/02/20 [History] Magnesium 250 mg PO DAILY 05/02/20 [History] Vits #93/Iron Fum/FA [ Formula Tablet] 1 each PO DAILY 05/02/20 [History] Sertraline [Zoloft] 50 mg PO DAILY 05/02/20 [History] hydrOXYzine HCL [Atarax] 50 mg PO DAILY 05/02/20 [History] - CURRENT (IN HOUSE) MEDS Current Meds: Current Medications Butorphanol Tartrate (Stadol) 1 mg IVPUSH Q1H PRN PRN Reason: Pain Carboprost Tromethamine (Hemabate Ds) 250 mcg IM ASDIRECTED PRN PRN Reason: Post Hemorrhage Oxytocin/Sodium Chloride (Oxytocin 30 Unit/500 Ml-Ns) 30 unit in 500 mls @ 999 mls/hr IV TITRATE [facility] Tranexamic Acid 1,000 mg/ (Sodium Chloride) 110 mls @ 660 mls/hr IV ONETIME PRN PRN Reason: Bleeding Oxytocin/Sodium Chloride (Oxytocin 30 Unit/500 Ml-Ns) 30 unit in 500 mls @ 2 mls/hr IV TITRATE [facility]; Protocol Lactated Ringer's (Ringers, Lactated) 1,000 mls @ 150 mls/hr IV ASDIRECTED TASHA Last Admin: 05/10/20 23:04 Dose: 500 mls/hr Documented by: Lidocaine HCl (Xylocaine 1%) 50 ml INJECT ONETIME PRN PRN Reason: Laceration repair Methylergonovine Maleate (Methergine) 0.2 mg IM ASDIRECTED PRN PRN Reason: Post Hemorrhage Misoprostol (Cytotec) 200 mcg PO ONETIME PRN PRN Reason: Post Hemorrhage Misoprostol (Cytotec) 25 mcg VAG ONETIME PRN PRN Reason: Cervical Ripening Last Admin: 05/10/20 16:51 Dose: 25 mcg Documented by: Misoprostol (Cytotec) 25 mcg VAG Q4H PRN PRN Reason: Cervical Ripening Last Admin: 05/10/20 20:55 Dose: 25 mcg Documented by: Ondansetron HCl (Zofran) 4 mg IVPUSH Q4H PRN PRN Reason: Nausea/Vomiting Sodium Chloride (Saline Flush) 10 ml FLUSH ASDIRECTED PRN PRN Reason: Keep Vein Open Sodium Chloride (Saline Flush) 2.5 ml FLUSH ASDIRECTED PRN PRN Reason: Keep Vein Open Sodium Chloride (Normal Saline) 10 ml IV ASDIRECTED PRN PRN Reason: IV Use Sterile Water (Sterile Water For Irrigation) 1,000 ml IRR ASDIRECTED PRN PRN Reason: delivery Terbutaline Sulfate (Brethine) 0.25 mg SUBCUT ASDIRECTED PRN PRN Reason: Tacysystole Discontinued Medications Fentanyl (Sublimaze) Confirm Administered Dose 100 mcg .ROUTE .STK-MED ONE Stop: 05/10/20 23:06 Ropivacaine (Naropin 0.2%) Confirm Administered Dose 100 mls @ as directed .ROUTE .STK-MED ONE Stop: 05/10/20 23:07 Ropivacaine (Naropin 0.2%) Confirm Administered Dose 20 ml .ROUTE .STK-MED ONE Stop: 05/10/20 23:06
[2020-05-11] MEDS: Lactated Ringers 1,000 ML IV SCH (04:56)
[2020-05-11] MEDS ORDERED: Acetaminophen 500 MG Tab PO PRN ×2 (07:44)
[2020-05-11] MEDS ORDERED: Bisacodyl 10 MG Supp RECTAL PRN (07:44)
[2020-05-11] MEDS ORDERED: Docusate Sodium 100 MG Cap PO PRN (07:44)
[2020-05-11] MEDS ORDERED: Ibuprofen 400 MG Tab PO PRN (07:44)
[2020-05-11] MEDS ORDERED: Witch Hazel Medicated Pads 40/Jar TOP PRN (07:44)
[2020-05-11] MEDS ORDERED: Benzocaine/Menthol 20%-0.5% Spray 78 GM Cannister TOP PRN (07:44)
[2020-05-11] MEDS ORDERED: Lanolin 100% Cream 7 GM Tube TOP PRN (07:44)
--- NOTE | 2020-05-11 07:51 | PCM.OPNOTE ---
- General Post-Op/Procedure Note Date of Surgery/Procedure: 05/11/20 Operative Procedure(s): /1st right periurethral laceration-repaired Findings: Viable male 4330 gm APGARs 8, 9. Spontaneous delivery intact placenta with 3V cord Pre Op Diagnosis: 38/1 week IUP. Gestational diabetes, insulin dependent. History of 28 week demise Post-Op Diagnosis: Same Anesthesia Technique: Epidural Primary Surgeon: Sabra Caldwell EBL in mLs: 300 Complications: none known Condition: Stable Free Text/Narrative:: Dictation [id number]
[2020-05-11] MEDS: Ibuprofen 800 MG Tab PO PRN ×3 (08:48→22:45)
--- NOTE | 2020-05-11 09:00 | OR ---
SURGEON: Sabra Caldwell M.D. DATE OF PROCEDURE: 05/11/2020 PREOPERATIVE DIAGNOSES: 1. 38 and 1-week intrauterine . 2. Gestational diabetes, insulin dependent. 3. History of 28 week demise. POSTOPERATIVE DIAGNOSES: 1. 38 and 1-week intrauterine . 2. Gestational diabetes, insulin dependent. 3. History of 28 week demise. PROCEDURE: Spontaneous vaginal delivery with first-degree periurethral laceration repaired. PRIMARY SURGEON: Sabra Caldwell M.D. ANESTHESIA: Epidural. ESTIMATED BLOOD LOSS: 300 mL. COMPLICATIONS: None known. FINDINGS: Viable male. scores 8 at one minute and 9 at five minutes. Weight of 4330 g. Spontaneous delivery, intact placenta, 3-vessel cord. DISPOSITION: Infant to nursery, mom in LDRP, stable. PROCEDURE IN DETAIL: Parveen is a 29-year-old G6, P 2-1-1-2 at 38 and 1-week gestational age, who presents on the evening of 05/10/2020 for scheduled induction of labor due to insulin-dependent gestational diabetes and a history of a 28-week demise. Upon admission, the patient was found to be fingertip thick, -3 station, therefore initiated Cytotec ripening. Glucose was normal. heart tones category 1. The patient responded very nicely to the Cytotec and progressed to a 3 cm with increasing discomfort at approximately 4 to 5 cm. She underwent epidural, became more comfortable. Continued to slowly progress over the loss prevention research engineer hours. Spontaneous rupture of membranes at approximately 4:30 a.m., clear fluid. Shortly after 5:00 a.m., it was noted that she began having some variable decelerations. At this time, she was found to be 6 to 7 cm, 80% effaced, -2 station. Therefore, an IUPC was placed to help monitor in case amnioinfusion was needed. The patient continued to progress, and within the next hour was found to be complete, 100% effaced, 0 station. I was called for delivery. Upon my arrival, the patient was placed in modified dorsal lithotomy position, was prepped and draped in the usual aseptic manner, began pushing efforts, pushed readily, and was able to deliver the head to a +4 station, with the next contraction was able to deliver head spontaneously atraumatically, followed by anterior shoulder, posterior shoulder, and remainder of body. The 's oropharynx and nares were bulb suctioned. There was a loose nuchal cord x1 noted. The was handed off to his mother, attending nursing staff were at the side. After a delay, the cord was clamped x2 and cut. Cord arterial, cord venous, cord blood sampling was obtained. Light pressure was applied. The placenta was delivered spontaneously intact. Vigorous fundal uterine massage was then applied while 30 units of Pitocin was delivered in 500 mL IV fluid. Upon inspection of cervix, vaginal sidewalls, and perineum, there was found to be a first-degree right periurethral laceration that was repaired using 3-0 Vicryl in the usual fashion. Hemostasis appeared evident. Uterus remained firm. Sponge, instrument, and needle counts were correct. The patient remained in LDRP and in nursery. ANGELINE NEWMAN /[id number]
--- NOTE | 2020-05-11 11:07 | PCM48HPAN ---
Post Anesthesia Note - EVALUATION WITHIN 48HRS OF ANESTHETIC Vital Signs in Normal Range: Yes Patient Participated in Evaluation: Yes Respiratory Function Stable: Yes Airway Patent: Yes Cardiovascular Function Stable: Yes Hydration Status Stable: Yes Pain Control Satisfactory: Yes Nausea and Vomiting Control Satisfactory: Yes Mental Status Recovered: Yes Vital Signs: STABLE - COMMENTS/OBSERVATIONS Free Text/Narrative:: No problems noted post.
[2020-05-11] MEDS ORDERED: 50% Dextrose in Water 50 ML Syringe IV PRN ×2 (14:14→16:28)
[2020-05-11] MEDS ORDERED: Glucagon,Human Recombinant 1 MG Vial IM PRN ×2 (14:14→16:28)
[2020-05-11] MEDS: Insulin Glargine,Human Rec. Analog 100 Units/ML 3 ML Pen SUBCUT SCH ×2 (14:51→21:26)
[2020-05-11] MEDS: oxyCODONE 5 MG Tab PO PRN ×2 (17:42→22:46)
[2020-05-11] MEDS: Insulin Aspart 100 Units/ML 3 ML Pen SUBCUT SCH (19:43)
[2020-05-12 06:11] LABS: BLOOD UREA NITROGEN,BUN 5 mg/dL (7.0-18.0); CARBON DIOXIDE,CO2 21.2 mmol/L (21.0-32.0); CHLORIDE,CL 108 mmol/L (98-107); GLUCOSE RANDOM 115 mg/dL (74-106); POTASSIUM,K 3.7 mmol/L (3.5-5.1); SODIUM,NA 139 mmol/L (136-145)
[2020-05-12] MEDS: Insulin Aspart 100 Units/ML 3 ML Pen SUBCUT SCH ×2 (07:04→12:47)
[2020-05-12] MEDS: Ibuprofen 800 MG Tab PO PRN (07:24)
[2020-05-12] MEDS: Insulin Glargine,Human Rec. Analog 100 Units/ML 3 ML Pen SUBCUT SCH (09:19)
--- NOTE | 2020-05-12 11:42 | PCM.PNPP ---
- General Info Date of Service: 05/12/20 Functional Status: Reports: Pain Controlled, Tolerating Diet, Ambulating, Urinating - Review of Systems General: Reports: Fatigue. Denies: Fever, Weakness Pulmonary: Denies: Shortness of Breath Cardiovascular: Denies: Chest Pain, Palpitations, Lightheadedness Gastrointestinal: Reports: Abdominal Pain (cramping is fairly intense with ) Genitourinary: Reports: No Symptoms Musculoskeletal: Reports: No Symptoms Skin: Reports: No Symptoms Neurological: Reports: No Symptoms Psychiatric: Reports: No Symptoms - General Info Date of Service: 05/12/20 - Patient Data Vital Signs - Most Recent: Last Vital Signs Temp 36.7 C 05/12/20 09:25 Pulse 98 05/12/20 09:25 Resp 18 05/12/20 09:25 BP 119/70 05/12/20 09:25 Pulse Ox 95 05/12/20 09:25 Weight - Most Recent: 96.615 kg Lab Results - Last 24 Hours: Laboratory Results - last 24 hr 05/11/20 05/11/20 05/11/20 Range/Units 12:00 13:59 17:23 Hgb (12.0-16.0) g/dL Hct (36.0-46.0) % Sodium (136-145) mmol/L Potassium (3.5-5.1) mmol/L Chloride (98-107) mmol/L Carbon Dioxide (21.0-32.0) mmol/L BUN (7.0-18.0) mg/dL Creatinine (0.6-1.0) mg/dL Est Cr Clr Drug Dosing mL/min Estimated GFR (MDRD) ml/min Glucose (74-106) mg/dL POC Glucose 210 H 215 H 147 H (60-110) mg/dL Calcium (8.5-10.1) mg/dL 05/11/20 05/12/20 05/12/20 Range/Units 21:24 05:14 05:14 Hgb 10.3 L (12.0-16.0) g/dL Hct 32.0 L (36.0-46.0) % Sodium 139 (136-145) mmol/L Potassium 3.7 (3.5-5.1) mmol/L Chloride 108 H (98-107) mmol/L Carbon Dioxide 21.2 (21.0-32.0) mmol/L BUN 5 L (7.0-18.0) mg/dL Creatinine 0.4 L (0.6-1.0) mg/dL Est Cr Clr Drug Dosing 174.76 mL/min Estimated GFR (MDRD) > 60.0 ml/min Glucose 115 H (74-106) mg/dL POC Glucose 174 H (60-110) mg/dL Calcium 8.4 L (8.5-10.1) mg/dL 05/12/20 05/12/20 Range/Units 06:58 09:16 Hgb (12.0-16.0) g/dL Hct (36.0-46.0) % Sodium (136-145) mmol/L Potassium (3.5-5.1) mmol/L Chloride (98-107) mmol/L Carbon Dioxide (21.0-32.0) mmol/L BUN (7.0-18.0) mg/dL Creatinine (0.6-1.0) mg/dL Est Cr Clr Drug Dosing mL/min Estimated GFR (MDRD) ml/min Glucose (74-106) mg/dL POC Glucose 70 123 H (60-110) mg/dL Calcium (8.5-10.1) mg/dL Med Orders - Current: Current Medications Acetaminophen (Tylenol Extra Strength) 500 mg PO Q4H PRN PRN Reason: Pain Acetaminophen (Tylenol Extra Strength) 1,000 mg PO Q4H PRN PRN Reason: Pain Last Admin: 05/11/20 08:49 Dose: 1,000 mg Documented by: Benzocaine/Menthol (Dermoplast Pain Relief 20%-0.5% [place]) 78 gm TOP ASDIRECTED PRN PRN Reason: Perineal Comfort Measure Last Admin: 05/11/20 08:47 Dose: 1 spray Documented by: Bisacodyl (Dulcolax) 10 mg RECTAL ONETIME PRN PRN Reason: Constipation Carboprost Tromethamine (Hemabate Ds) 250 mcg IM ASDIRECTED PRN PRN Reason: Post Hemorrhage Dextrose/Water (Dextrose 50% In Water) 50 ml IV ASDIRECTED PRN PRN Reason: Hypoglycemia Docusate Sodium (Colace) 100 mg PO BID PRN PRN Reason: Constipation Last Admin: 05/11/20 22:45 Dose: 100 mg Documented by: Emollient Ointment (Lansinoh Hpa) 0 gm TOP ASDIRECTED PRN PRN Reason: Sore Nipples Last Admin: 05/11/20 08:48 Dose: 1 gm Documented by: Glucagon (Glucagen) 1 mg IM ASDIRECTED PRN PRN Reason: Hypoglycemia Oxytocin/Sodium Chloride (Oxytocin 30 Unit/500 Ml-Ns) 30 unit in 500 mls @ 999 mls/hr IV TITRATE [facility] Tranexamic Acid 1,000 mg/ (Sodium Chloride) 110 mls @ 660 mls/hr IV ONETIME PRN PRN Reason: Bleeding Oxytocin/Sodium Chloride (Oxytocin 30 Unit/500 Ml-Ns) 30 unit in 500 mls @ 2 mls/hr IV TITRATE [facility]; Protocol Last Titration: 05/11/20 07:23 Dose: 500 munits/min, 500 mls/hr Documented by: Lactated Ringer's (Ringers, Lactated) 1,000 mls @ 150 mls/hr IV ASDIRECTED [facility] Last Admin: 05/11/20 04:56 Dose: 500 mls/hr Documented by: Ibuprofen (Motrin) 400 mg PO Q4H PRN PRN Reason: Pain Ibuprofen (Motrin) 800 mg PO Q6H PRN PRN Reason: Pain Last Admin: 05/12/20 07:24 Dose: 800 mg Documented by: Insulin Aspart (Novolog) 0 unit SUBCUT TIDAC [facility]; Protocol Last Admin: 05/12/20 07:04 Dose: Not Given Documented by: Insulin Glargine (Lantus Solostar) 10 units SUBCUT BID [facility] Last Admin: 05/12/20 09:19 Dose: 10 units Documented by: Lidocaine HCl (Xylocaine 1%) 50 ml INJECT ONETIME PRN PRN Reason: Laceration repair Methylergonovine Maleate (Methergine) 0.2 mg IM ASDIRECTED PRN PRN Reason: Post Hemorrhage Ondansetron HCl (Zofran) 4 mg IVPUSH Q4H PRN PRN Reason: Nausea/Vomiting Oxycodone HCl (Oxycodone) 5 mg PO Q2H PRN PRN Reason: Pain Last Admin: 05/11/20 22:46 Dose: 5 mg Documented by: Sodium Chloride (Saline Flush) 10 ml FLUSH ASDIRECTED PRN PRN Reason: Keep Vein Open Sodium Chloride (Saline Flush) 2.5 ml FLUSH ASDIRECTED PRN PRN Reason: Keep Vein Open Sodium Chloride (Normal Saline) 10 ml IV ASDIRECTED PRN PRN Reason: IV Use Sterile Water (Sterile Water For Irrigation) 1,000 ml IRR ASDIRECTED PRN PRN Reason: delivery Terbutaline Sulfate (Brethine) 0.25 mg SUBCUT ASDIRECTED PRN PRN Reason: Tacysystole Witch Ldea (Tucks) 1 pad TOP ASDIRECTED PRN PRN Reason: comfort care Last Admin: 05/11/20 08:47 Dose: 1 pad Documented by: Discontinued Medications Butorphanol Tartrate (Stadol) 1 mg IVPUSH Q1H PRN PRN Reason: Pain Dextrose/Water (Dextrose 50% In Water) 50 ml IV ASDIRECTED PRN PRN Reason: Hypoglycemia Fentanyl (Sublimaze) Confirm Administered Dose 100 mcg .ROUTE .STK-MED ONE Stop: 05/10/20 23:06 Last Admin: 05/11/20 19:40 Dose: Not Given Documented by: Glucagon (Glucagen) 1 mg IM ASDIRECTED PRN PRN Reason: Hypoglycemia Ropivacaine (Naropin 0.2%) Confirm Administered Dose 100 mls @ as directed .ROUTE .STK-MED ONE Stop: 05/10/20 23:07 Last Admin: 05/11/20 19:40 Dose: Not Given Documented by: Misoprostol (Cytotec) 200 mcg PO ONETIME PRN PRN Reason: Post Hemorrhage Misoprostol (Cytotec) 25 mcg VAG ONETIME PRN PRN Reason: Cervical Ripening Last Admin: 05/10/20 16:51 Dose: 25 mcg Documented by: Misoprostol (Cytotec) 25 mcg VAG Q4H PRN PRN Reason: Cervical Ripening Last Admin: 05/10/20 20:55 Dose: 25 mcg Documented by: Ropivacaine (Naropin 0.2%) Confirm Administered Dose 20 ml .ROUTE .STK-MED ONE Stop: 05/10/20 23:06 Last Admin: 05/11/20 19:40 Dose: Not Given Documented by: - Interaction Support Person: - Recovery Exam Fundal Tone: Firm Fundal Level: 1 Fingerbreadths Above Umbilicus Fundal Placement: Midline Lochia Amount: Scant Lochia Color: Rubra/Red Perineum Description: Other (see below) Other Perinuem Description: 1st degree laceration Episiotomy/Laceration: Approximated Bladder Status: Nonpalpable, Voiding Urinary Elimination: Voided - Exam General: Alert, Oriented Neck: Supple Lungs: Normal Respiratory Effort Cardiovascular: Regular Rate, Regular Rhythm GI/Abdominal Exam: Normal Bowel Sounds, Soft Extremities: Pedal Edema (trace). No: Mary Kay's Sign Skin: Warm, Dry, Intact Neurological: No New Focal Deficit Psy/Mental Status: Alert, Normal Affect, Normal Mood - Problem List & Annotations (1) Vaginal delivery SNOMED Code(s): 028630493 Code(s): O80 - ENCOUNTER FOR FULL-TERM UNCOMPLICATED DELIVERY Status: Acute Current Visit: Yes (2) Gestational diabetes SNOMED Code(s): 41044216 Code(s): O24.419 - GESTATIONAL DIABETES MELLITUS IN , UNSP CONTROL Status: Acute Current Visit: Yes Qualifiers: Gestational diabetes mellitus control: insulin-controlled - Problem List Review Problem List Initiated/Reviewed/Updated: Yes - My Orders Last 24 Hours: My Active Orders 05/11/20 12:00 Blood Glucose Check, Bedside [RC] ONETIME 05/11/20 14:14 Dextrose 50% in Water 50 ml IV ASDIRECTED PRN Glucagon,Human Recombinant [GlucaGen] 1 mg IM ASDIRECTED PRN 05/11/20 14:15 Insulin Glarg,Human.Rec.Analog [LantUS Solostar] 10 units SUBCUT BID 05/11/20 17:00 Insulin Aspart [NovoLOG] See Protocol SUBCUT TIDAC 05/12/20 11:40 Ready for Discharge [RC] PER UNIT ROUTINE - Assessment Assessment:: Doing well overall--VS and labs reassuring. Did resume lantus 10 mg bid yesterday due to glucoses in 200s after delivery. The sugars are normalized now in 70-120s. She agrees to continue to monitor glucoses and take lantus bid. She is given parameters for low blood sugars and to call if running low, so we can adjust. She is taking sertraline 50 mg daily, will increase to 100 mg daily for PP period. Otherwise, she does want to go home. Discharge to home today. Follow up at [facility] 4 weeks and will need 75 gm GTT. Discharge instructions reviewed.
== END 2020-05-12 12:43 | disposition home or self-care (01) | DRG 807 ==
LOC: MW.OB 07:23 → OBSVTOIN 05-11 07:23 → MW.OB 05-11 16:13
PROVIDERS: ADMIT Obstetrics & Gynecology; ATTEND Obstetrics & Gynecology
PROC: 10E0XZZ Delivery of Products of Conception, External Approach (ICD-10-PCS; principal; 2020-05-11)
PROC: 0UQMXZZ Repair Vulva, External Approach (ICD-10-PCS; 2020-05-11)
PROC: 3E0R3BZ Introduction of Anesthetic Agent into Spinal Canal, Percutaneous Approach (ICD-10-PCS; 2020-05-11)
PROC: 00HU33Z Insertion of Infusion Device into Spinal Canal, Percutaneous Approach (ICD-10-PCS; 2020-05-11)
PROC: 3E0P7VZ Introduction of Hormone into Female Reproductive, Via Natural or Artificial Opening (ICD-10-PCS; 2020-05-11)
DX: O24.424 Gestational diabetes mellitus in childbirth, insulin controlled (principal); Z37.0 Single live birth; Z3A.38 38 weeks gestation of pregnancy; O71.82 Other specified trauma to perineum and vulva; Z20.828 Contact with and (suspected) exposure to other viral communicable diseases
CPT/HCPCS: 36415; 51702; 59025; 59409; 80048; 82803; 82962; 85014; 85018; 85027; 86592; 86850; 86900; 86901; A9270-GY; J1815-GY; J2590; J2795; J3010; J7120

== ENCOUNTER 2023-02-07 19:48 | Emergency (ER) | payer OTHER ==
[2023-02-07] MEDS ORDERED: Amoxicillin/Clavulanate K 875-125 MG Tab PO ONE (20:26)
[2023-02-07] MEDS ORDERED: Acetaminophen/oxyCODONE 325-5 MG Tab PO ONE (20:26)
== END 2023-02-07 20:30 | disposition home or self-care (01) ==
LOC: MW.ED 19:48
DX: K04.7 Periapical abscess without sinus (principal); E10.9 Type 1 diabetes mellitus without complications; E66.9 Obesity, unspecified; Z68.28 Body mass index [BMI] 28.0-28.9, adult; Z88.6 Allergy status to analgesic agent
CPT/HCPCS: 99282; A9270

== ENCOUNTER 2024-05-03 17:59 | Emergency (ER) | payer SELFPAY | END 2024-05-03 20:40 | disposition home or self-care (01) | LOC: MW.ED 17:59 | DX: S09.90XA Unspecified injury of head, initial encounter (principal); E66.9 Obesity, unspecified; E10.9 Type 1 diabetes mellitus without complications; Z88.8 Allergy status to other drugs, medicaments and biological substances; Z79.899 Other long term (current) drug therapy; W22.8XXA Striking against or struck by other objects, initial encounter | CPT/HCPCS: 99283 ==